=== PATIENT | male | born 2000 | race Hispanic/Latino ===

== ENCOUNTER 2019-06-08 15:42 | Emergency (ER) | payer OTHER ==
[~2019-06-08] VITALS: Ht 175.3 cm; Wt 74.1 kg
[2019-06-08] MEDS ORDERED: IBUPROFEN 600 MG TAB PO ONE (16:30)
--- NOTE | 2019-06-08 17:28 | REP ---
LEFT SHOULDER, THREE VIEWS: There is no evidence of an acute fracture, dislocation or intrinsic bone disease. IMPRESSION: No fracture or dislocation. Electronically Signed by Isrrael Guerin MD 06/08/2019 05:42 P
[2019-06-08] MEDS ORDERED: IBUP-1022 PO (17:34)
[2019-06-08 17:44] VITALS: BP 136/82
== END 2019-06-08 17:47 | disposition home or self-care (01) ==
LOC: M ED 15:42
DX: S46.812A Strain of other muscles, fascia and tendons at shoulder and upper arm level, left arm, initial encounter (principal); W19.XXXA Unspecified fall, initial encounter; Y92.138 Other place on military base as the place of occurrence of the external cause; Y93.89 Activity, other specified; Y99.1 Military activity; F17.200 Nicotine dependence, unspecified, uncomplicated

== ENCOUNTER 2019-09-22 18:40 | Emergency (ER) | payer OTHER ==
[~2019-09-22] VITALS: Ht 172.7 cm; Wt 76.5 kg
[2019-09-22 18:40] VITALS: BP 167/96
[~2019-09-22 18:40] MED LIST: IBUP-1022 PO
[2019-09-22] MEDS ORDERED: LIDOCAINE 2% MDV 20ML VIAL SC ONE (19:00)
[2019-09-22] MEDS ORDERED: AUGM875T28 PO (19:21)
== END 2019-09-22 19:34 | disposition home or self-care (01) ==
LOC: M ED 18:40
DX: S60.451A Superficial foreign body of left index finger, initial encounter (principal); S80.852A Superficial foreign body, left lower leg, initial encounter; R20.0 Anesthesia of skin; W26.8XXA Contact with other sharp object(s), not elsewhere classified, initial encounter; Y92.89 Other specified places as the place of occurrence of the external cause; F17.210 Nicotine dependence, cigarettes, uncomplicated